=== PATIENT | male | born 1985 | race American Indian/Alaskan Native ===

== ENCOUNTER 2017-01-28 13:08 | Day surgery (SDC) | payer OTHER ==
[~2017-01-28] VITALS: Ht 170.2 cm; Wt 67.6 kg
[2017-01-28 13:32] VITALS: BP 100/79; PULSE 86; TEMP 98.4
[2017-01-28 14:53] VITALS: BP 103/76; PULSE 71; TEMP 97.8
[2017-01-28 15:08] VITALS: BP 111/78; PULSE 67
[2017-01-28 15:23] VITALS: BP 105/73; PULSE 61
[2017-01-28 16:41] VITALS: BP 92/56; PULSE 69
== END 2017-01-28 15:42 | disposition home or self-care (01) ==
LOC: SDCO 13:08
DX: R19.5 Other fecal abnormalities (principal); K64.0 First degree hemorrhoids
CPT/HCPCS: OP; J2250; J2405; J3010; J7030